=== PATIENT | male | born 1940 | race Caucasian/White ===

== ENCOUNTER 2021-02-21 09:50 | Outpatient (CLI) | payer BC | END 2021-02-21 09:51 | disposition home or self-care (01) | LOC: CSHLAB 09:50 | PROVIDERS: ATTEND Orthopaedic Surgery | DX: Z01.818 Encounter for other preprocedural examination (principal); I47.1 Supraventricular tachycardia | CPT/HCPCS: 80048; 83036; 85027; 85610; 85730; 86850; 86900; 86901; 93005; 93010; U0003; U0005 ==